=== PATIENT | male | born 1975 | race Caucasian/White ===

== ENCOUNTER 2019-09-15 09:57 | Emergency (ER) | payer SELFPAY ==
[~2019-09-15] VITALS: Ht 175.3 cm; Wt 118.4 kg
[2019-09-15] MEDS ORDERED: LIDOCAINE-MPF 1%, 5ML INFIL ONE (10:30)
--- NOTE | 2019-09-15 10:35 | NUR ---
Pt brought back from triage with chief complaint of right arm swelling and abcess from possible bug bite. Seen at urgent care yesterday however increased swelling and reddness today.
[2019-09-15] MEDS ORDERED: LIDOCAINE-MPF 1%, 5ML ONE (10:42)
--- NOTE | 2019-09-15 11:01 | NUR ---
ER emt at bedside to assist with I&D.
[2019-09-15 11:22] VITALS: BP 135/92
[2019-09-15] MEDS ORDERED: NEOSPORIN OINT. PKT 1 PACKET ONE (11:28)
== END 2019-09-15 11:38 | disposition home or self-care (01) ==
LOC: ED 11:30
DX: L02.413 Cutaneous abscess of right upper limb (principal)
CPT/HCPCS: 10060; 99283